=== PATIENT | female | born 1980 | race Caucasian/White ===

== ENCOUNTER 2019-05-03 05:30 | Inpatient (IN) ==
[2019-05-03] MEDS ORDERED: Naloxone 0.4 MG/ML INJ IVP PRN (06:12)
[2019-05-03] MEDS ORDERED: Metoclopramide 10 MG/2 ML VIAL IVP PRN ×2 (06:12→11:48)
[2019-05-03] MEDS ORDERED: Famotidine 20 MG/2 ML VIAL IVP PRN (06:12)
[2019-05-03] MEDS ORDERED: Ringers Solution, Lactated 1,000 ML IVC SCH (06:15)
[2019-05-03 06:48] LABS: Basophils % 0.2 %; Eosinophils # 0.2 K/mcL (0.0-0.6); Eosinophils % 2.9 %; Hemoglobin 11.8 g/dL (11.5-15.4); Immature Granulocytes % 0.4 % (0-4); Lymphocytes # 1.3 K/mcL (0.6-4.6); Lymphocytes % 23.7 %; Mean Corpuscular HGB Conc 34.7 g/dL (31.6-35.5); Mean Corpuscular Hemoglobin 31.3 pg (28.0-33.3); Mean Corpuscular Volume 90.2 fL (83.0-100.0); Monocytes # 0.5 K/mcL (0.0-1.3); Monocytes % 9.7 %; Neutrophils # 3.4 K/mcL (1.6-8.9); Platelet Count 239 K/mcL (140-400); Red Blood Count 3.77 M/mcL (3.82-4.97); Red Cell Distribution Width 13.3 % (11.5-14.5); Segmented Neutrophils % 63.1 %; White Blood Count 5.5 K/mcL (4.3-11.1)
[2019-05-03] MEDS ORDERED: Ondansetron 4 MG/2 ML VIAL ONE (07:31)
[2019-05-03] MEDS ORDERED: *HR* FentaNYL (PF) 100 MCG/2 ML VIAL ONE (07:31)
[2019-05-03] MEDS ORDERED: EPHEDrine 50 MG/ML VIAL ONE (07:31)
[2019-05-03] MEDS ORDERED: *HR* Oxytocin 10 UNIT/ML VIAL IM ONE (07:31)
[2019-05-03] MEDS ORDERED: *HR* Phenylephrine 10 MG/ML VIAL ONE (07:31)
[2019-05-03] MEDS ORDERED: *HR* Morphine Sulfate/PF 10 MG/10 ML AMPUL ONE (07:32)
[2019-05-03] MEDS ORDERED: CeFAZolin Premix DUPLEX 2,000 MG/50 ML BAG IVPB ONE (07:38)
[2019-05-03] MEDS ORDERED: Ringers Solution, Lactated 1,000 ML ONE (07:57)
[2019-05-03] MEDS ORDERED: *HR* OxyCODONE/APAP 5/325 TABLET PO PRN (08:16)
[2019-05-03] MEDS ORDERED: Ondansetron 4 MG/2 ML VIAL IVP PRN ×2 (08:16→11:48)
[2019-05-03] MEDS ORDERED: Ibuprofen 400 MG TABLET PO PRN (08:16)
[2019-05-03] MEDS ORDERED: Acetaminophen IV 1,000 MG/100 ML INFUS..BTL IVPB ONE (08:17)
[2019-05-03 08:53] LABS: Amphetamine Screen,Urine Negative ng/mL (Cutoff=1000); Barbiturate Screen,Urine Negative ng/mL (Cutoff=200); Benzodiazepines Screen,Urine Negative ng/mL (Cutoff=200); Cannabinoid Screen,Urine Negative ng/mL (Cutoff = 50); Cocaine Screen,Urine Negative ng/mL (Cutoff= 300); Opiate Screen,Urine Negative ng/mL (Cutoff=300); Phencyclidine Screen,Urine Negative ng/mL (Cutoff=25)
[2019-05-03] MEDS ORDERED: Oxytocin 20 units/ LR 1000 mL 20 UNIT/1,000 ML BAG IVC ONE (10:21)
[2019-05-03] MEDS ORDERED: Sennosides 8.6 MG TABLET PO PRN (11:48)
[2019-05-03] MEDS ORDERED: Oxytocin 20 units/ LR 1000 mL 20 UNIT/1,000 ML BAG IVC SCH (11:48)
[2019-05-03] MEDS: Ibuprofen 600 MG TABLET PO PRN ×2 (12:46→20:07)
[2019-05-03] MEDS: *HR* OxyCODONE/APAP 5/325 TABLET PO PRN ×2 (15:25→23:13)
[2019-05-04] MEDS ORDERED: Ringers Solution, Lactated 500 ML IVC ONE (04:56)
[2019-05-04] MEDS ORDERED: Ringers Solution, Lactated 500 ML ONE (04:56)
[2019-05-04 05:21] LABS: Basophils % 0.1 %; Eosinophils # 0.1 K/mcL (0.0-0.6); Eosinophils % 1.4 %; Hematocrit 26.4 % (35.3-44.9); Immature Granulocytes % 0.3 % (0-4); Lymphocytes # 0.8 K/mcL (0.6-4.6); Lymphocytes % 10.8 %; Mean Corpuscular HGB Conc 34.1 g/dL (31.6-35.5); Mean Corpuscular Hemoglobin 31.9 pg (28.0-33.3); Mean Corpuscular Volume 93.6 fL (83.0-100.0); Mean Platelet Volume 10.1 fL (9.4-12.4); Monocytes # 0.7 K/mcL (0.0-1.3); Monocytes % 9.5 %; Neutrophils # 5.6 K/mcL (1.6-8.9); Platelet Count 186 K/mcL (140-400); Red Blood Count 2.82 M/mcL (3.82-4.97); Red Cell Distribution Width 13.2 % (11.5-14.5); Segmented Neutrophils % 77.9 %; White Blood Count 7.2 K/mcL (4.3-11.1)
[2019-05-04] MEDS: *HR* OxyCODONE/APAP 5/325 TABLET PO PRN ×3 (05:40→20:20)
[2019-05-04] MEDS ORDERED: Lanolin 7 G OINT...G. TP PRN (05:49)
[2019-05-04] MEDS: Simethicone 80 MG TAB.CHEW PO PRN ×2 (08:14→20:00)
[2019-05-04] MEDS: Prenatal Vit/FA 1 EACH TABLET PO SCH (08:14)
[2019-05-04] MEDS: Ibuprofen 600 MG TABLET PO PRN ×2 (08:14→18:33)
[2019-05-04 11:17] LABS: Hematocrit 24.6 % (35.3-44.9); Hemoglobin 8.3 g/dL (11.5-15.4)
[2019-05-04] MEDS ORDERED: 0.9 % Sodium Chloride 500 ML ONE (12:28)
[2019-05-05 00:45] LABS: Basophils % 0.2 %; Eosinophils # 0.3 K/mcL (0.0-0.6); Eosinophils % 3.3 %; Hematocrit 28.6 % (35.3-44.9); Immature Granulocytes % 0.4 % (0-4); Lymphocytes # 1.4 K/mcL (0.6-4.6); Mean Corpuscular HGB Conc 34.6 g/dL (31.6-35.5); Mean Corpuscular Hemoglobin 31.7 pg (28.0-33.3); Mean Corpuscular Volume 91.7 fL (83.0-100.0); Mean Platelet Volume 10.3 fL (9.4-12.4); Monocytes # 0.8 K/mcL (0.0-1.3); Monocytes % 8.2 %; Neutrophils # 6.8 K/mcL (1.6-8.9); Platelet Count 210 K/mcL (140-400); Red Blood Count 3.12 M/mcL (3.82-4.97); Red Cell Distribution Width 14.1 % (11.5-14.5); Segmented Neutrophils % 72.9 %; White Blood Count 9.3 K/mcL (4.3-11.1)
[2019-05-05 00:55] LABS: Hemoglobin 9.9 g/dL (11.5-15.4)
[2019-05-05] MEDS: *HR* OxyCODONE/APAP 5/325 TABLET PO PRN ×2 (03:44→08:32)
[2019-05-05] MEDS: Simethicone 80 MG TAB.CHEW PO PRN ×2 (03:44→08:33)
[2019-05-05 05:26] LABS: Basophils % 0.3 %; Eosinophils # 0.3 K/mcL (0.0-0.6); Eosinophils % 3.7 %; Hematocrit 28.3 % (35.3-44.9); Hemoglobin 9.6 g/dL (11.5-15.4); Immature Granulocytes % 0.4 % (0-4); Lymphocytes # 1.6 K/mcL (0.6-4.6); Lymphocytes % 19.8 %; Mean Corpuscular HGB Conc 33.9 g/dL (31.6-35.5); Mean Corpuscular Hemoglobin 31.2 pg (28.0-33.3); Mean Corpuscular Volume 91.9 fL (83.0-100.0); Mean Platelet Volume 10.5 fL (9.4-12.4); Monocytes # 0.6 K/mcL (0.0-1.3); Monocytes % 7.4 %; Neutrophils # 5.4 K/mcL (1.6-8.9); Platelet Count 207 K/mcL (140-400); Red Blood Count 3.08 M/mcL (3.82-4.97); Red Cell Distribution Width 14.1 % (11.5-14.5); Segmented Neutrophils % 68.4 %; White Blood Count 7.9 K/mcL (4.3-11.1)
[2019-05-05] MEDS: Prenatal Vit/FA 1 EACH TABLET PO SCH (08:20)
[2019-05-05 08:26] VITALS: BP 93/53
== END 2019-05-05 12:02 | disposition home or self-care (01) | DRG 784 ==
LOC: 1NENULAB 06:10 → 1NENUOBS 12:45
PROVIDERS: ADMIT Obstetrics & Gynecology; ATTEND Obstetrics & Gynecology